=== PATIENT | female | born 1995 | race Caucasian/White ===

== ENCOUNTER 2023-05-12 00:51 | Inpatient (IN) | payer OTHER, SELFPAY ==
[2023-05-12 01:02] VITALS: BMI 25.9
[2023-05-12 01:10] VITALS: BP 128/91
[2023-05-12] MEDS: LR 1000 IV ×2 (01:15→02:15)
[2023-05-12 01:25] LABS: % Basophils 0.5 % (0-2); % Eosinophils 0.5 % (0-6); % Immature Granulocytes 0.5 % (0-0.5); % Lymphocytes 12.6 % (20.5-51.1); % Monocytes 5.7 % (1.7-9.3); % Neutrophils 80.2 % (42.2-75.2); Absolute Basophils 0.1 10^3/uL (0-0.2); Absolute Eosinophils 0.1 10^3/uL (0-0.7); Absolute Immature Granulocytes 0.1 10^3/uL (0-0.05); Absolute Lymphocytes 1.9 10^3/uL (1.2-3.4); Absolute Monocytes 0.9 10^3/uL (0.1-0.6); Absolute Neutrophils 12.2 10^3/uL (1.4-6.5); Hematocrit 36.1 % (37.0-47.0); Hemoglobin 12.7 g/dL (12.0-16.0); Mean Corp Hgb Conc. 35.2 g/dL (33.0-37.0); Mean Corpuscular Hgb 28.9 pg (27.0-31.0); Mean Corpuscular Volume 82.2 fL (81.0-99.0); Mean Platelet Volume 11.2 fL (7.4-10.4); Nucleated Red Blood Cells % 0 %; Platelet Count 233 10^3/uL (130-400); Red Blood Cell Count 4.39 10^6/uL (4.20-5.40); Red Cell Dist. Width 12.9 % (11.5-14.5); White Blood Cell Count 15.2 10^3/uL (4.8-10.8)
[2023-05-12] MEDS: FENTANYL/BUPIVACAINE 100 EPIDURAL (01:49)
[2023-05-12] MEDS: SUBLIMAZE 100 MCG EPIDURAL (01:49)
[2023-05-12] MEDS: PITOCIN 30 UNITS/NSS 500 ML IV (03:56)
[2023-05-12] MEDS: PRENATAL PLUS 1 TABLET PO (07:49)
[2023-05-12] MEDS: AMOXIL 500 MG PO ×3 (07:49→22:05)
[2023-05-12] MEDS: TYLENOL 650 MG PO ×2 (10:02→20:17)
[2023-05-12] MEDS: MOTRIN 600 MG PO (17:16)
[2023-05-13] MEDS: MOTRIN 600 MG PO ×3 (05:00→20:22)
[2023-05-13 05:15] LABS: Hematocrit 35.9 % (37.0-47.0)
[2023-05-13] MEDS: AMOXIL 500 MG PO ×3 (08:12→21:49)
[2023-05-13] MEDS: PRENATAL PLUS 1 TABLET PO (08:12)
[2023-05-13] MEDS: SENOKOT-S 1 TABLET PO (08:12)
[2023-05-13 12:39] LABS: Syphilis/T. pallidum Ab Reflex Negative (Negative)
[2023-05-13] MEDS: TYLENOL 650 MG PO ×2 (15:19→19:28)
[2023-05-14] MEDS: TYLENOL 650 MG PO ×2 (02:48→08:35)
[2023-05-14] MEDS: MOTRIN 600 MG PO ×2 (02:48→08:35)
[2023-05-14] MEDS: AMOXIL 500 MG PO (08:21)
[2023-05-14] MEDS: PRENATAL PLUS 1 TABLET PO (08:21)
[2023-05-14] MEDS: SENOKOT-S 1 TABLET PO (08:21)
== END 2023-05-14 15:48 | disposition home or self-care (01) | DRG 807 ==
LOC: LDRP 00:51
PROVIDERS: Obstetrics & Gynecology; ADMITTING PHYSICIAN Obstetrics & Gynecology
PROC: 0UQMXZZ Repair Vulva, External Approach (ICD-10-PCS; 2023-05-12)
PROC: 10E0XZZ Delivery of Products of Conception, External Approach (ICD-10-PCS; 2023-05-12)
DX: O70.0 First degree perineal laceration during delivery (principal); Z37.0 Single live birth; Z3A.39 39 weeks gestation of pregnancy
CPT/HCPCS: 36415; 85014; 85018; 85025; 86780; 86850; 86900; 86901